=== PATIENT | female | born 1975 | race African-American/Black ===

== ENCOUNTER 2017-03-13 17:12 | Emergency (ER) | payer SELFPAY ==
--- NOTE | 2017-03-13 17:56 | PDOC ---
Rapid Medical Evaluation Time Seen by Provider: 03/13/17 17:53 Medical Evaluation: 03/13/17 17:53 I have performed a brief in-person evaluation of this patient. The patient presents with a chief complaint of: Chronic headache that worsened several days ago w/ nausea. H/o asthma Pertinent physical exam findings:Stable and well appearing I have ordered the following:nothing The patient will proceed to the ED for further evaluation.
[2017-03-13 18:01] VITALS: BP 146/87; PULSE 68; TEMP 98.7; BMI 19.8
[2017-03-13] MEDS ORDERED: KETOROLAC TROMETHAMINE 60 MG/2 ML VIAL IM ONE (18:30)
[2017-03-13 18:52] LABS: URINE APPEARANCE CLOUDY; URINE BILIRUBIN NEGATIVE (NEGATIVE); URINE BLOOD 3+ (NEGATIVE); URINE COLOR RED; URINE GLUCOSE (UA) NEGATIVE (NEGATIVE); URINE KETONE NEGATIVE (NEGATIVE); URINE NITRITE NEGATIVE (NEGATIVE); URINE UROBILINOGEN 4.0 E.U/dl mg/dL (0.2-1.0)
--- NOTE | 2017-03-13 18:58 | PDOC ---
History of Present Illness - General Chief Complaint: Headache Stated Complaint: HEADACHE Time Seen by Provider: 03/13/17 17:53 History Source: Patient Exam Limitations: No Limitations - History of Present Illness Initial Comments: 03/13/17 18:54 41-year-old female presents to the emergency room with complaints of left occipital and left temporal pain radiating to her left eye intermittently for the past week intermittently unrelieved with the Aleve. Patient states headaches began approximately one year ago and has varied in severity stating this is not the worst headache of her life. Patient does state headaches began after having a head injury down steps which she did not seek medical care nor she followed up with her medical provider since the injury. Patient also complaining of photosensitivity without phonosensitivity. Patient also states mild nausea without visual changes, vomiting, fever, chills or neck pain. Timing/Duration: reports: increasing Severity: Yes: moderate Associated Symptoms: reports: nausea/vomiting, other Past History - Past Medical History Allergies/Adverse Reactions: Allergies Allergy/AdvReac Type Severity Reaction Status Date / Time No Known Allergies Allergy Verified 03/13/17 18:45 Home Medications: Ambulatory Orders NK [No Known Home Medication] 03/13/17 COPD: No - Suicide/Smoking/Psychosocial Hx Smoking History: Never smoked Have you smoked in the past 12 months: No Information on smoking cessation initiated: No Hx Alcohol Use: No Drug/Substance Use Hx: No Substance Use Type: None Patient Lives Alone: No Lives with/in: spouse/SO Review of Systems - Review of Systems Able to Perform ROS?: Yes Constitutional: No: Symptoms Reported HEENTM: No: Symptoms Reported Respiratory: No: Symptoms reported Cardiac (ROS): No: Symptoms Reported ABD/GI: Yes: Nausea Musculoskeletal: No: Symptoms Reported Integumentary: No: Symptoms Reported Neurological: Yes: Headache. No: Dizziness Endocrine: No: Symptoms Reported *Physical Exam - Vital Signs Last Vital Signs Temp Pulse Resp BP Pulse Ox 98.7 F 68 16 146/87 100 03/13/17 17:53 03/13/17 17:53 03/13/17 17:53 03/13/17 17:53 03/13/17 17:53 - Physical Exam General Appearance: Yes: Nourished, Appropriately Dressed. No: Severe Distress HEENT: positive: EOMI, TYSHAWN, TMs Normal, Pharynx Normal. negative: Pale Conjunctivae Neck: positive: Supple. negative: Tender, Decreased range of motion Respiratory/Chest: positive: Lungs Clear, Normal Breath Sounds. negative: Respiratory Distress, Accessory Muscle Use Integumentary: positive: Normal Color, Warm, Moist Neurologic: positive: Motor Strength 5/5 (ambulatory) ED Treatment Course - RADIOLOGY Radiology Studies Ordered: Category Date Time Status HEAD CT WITHOUT CONTRAST [CT] Stat CT Scan 03/13/17 18:30 Ordered Medical Decision Making - Medical Decision Making 03/13/17 18:59 Patient here for evaluation of intermittent headache for the past 2 days patient with intermittent headaches of the past year after being involved in a fall causing head injury. Patient denied LOC one year ago. Patient hasn't had no neural focal deficits. Patient ordered for urine , Toradol IM and head CT for other etiology. If negative patient be given referral to neuro. 03/13/17 19:52 Laboratory Tests 03/13/17 18:40 Urine Protein 2+ H Urine Blood 3+ H Urine Nitrite Negative Urine Urobilinogen 4.0 e.u/dl H Urine WBC (Auto) 261 Urine RBC (Auto) 1840 Patient states any better after receiving the Toradol. Head CT negative. Patient to be discharged home with recommendations to take extra strength Tylenol and follow-up with neurology. *DC/Admit/Observation/Transfer Diagnosis at time of Disposition: Headache - Discharge Dispostion Disposition: HOME Condition at time of disposition: Unchanged/Unknown - Referrals Referrals: Tejinder Gonzalez DO [Staff Physician] - - Patient Instructions Printed Discharge Instructions: DI for Hormonal and Tension Headaches Additional Instructions: At this time I do recommend taking extra strength Tylenol with the onset of headache and if no improvement in 2 hours may take 400-600 mg of motrin. Please also follow up with referred neurologist - Post Discharge Activity
[2017-03-13 19:01] LABS: HCG,QUALITATIVE URINE NEGATIVE
[2017-03-13 19:07] LABS: URINE LEUK ESTERASE 1+ (NEGATIVE); URINE PROTEIN 2+ (NEGATIVE)
[2017-03-13 19:09] LABS: EPI CELLS RARE /HPF (FEW)
== END 2017-03-13 20:14 | disposition home or self-care (01) ==
LOC: JERFT 17:12
PROC: 3E0233Z Introduction of Anti-inflammatory into Muscle, Percutaneous Approach (ICD-10-PCS; principal; 2017-03-13)
DX: R51 Headache (principal)
CPT/HCPCS: 70450-TC; 81003; 81015; 84703; 99281-25